=== PATIENT | male | born 1995 | race Two or more races ===

== ENCOUNTER 2018-05-24 14:57 | Emergency (ER) | payer OTHER ==
[~2018-05-24] VITALS: Ht 180.3 cm; Wt 74.0 kg
[2018-05-24 15:36] VITALS: BP 124/59
== END 2018-05-24 17:40 | disposition home or self-care (01) ==
LOC: ER 14:57
DX: H02.89 Other specified disorders of eyelid (principal); R25.3 Fasciculation; F12.10 Cannabis abuse, uncomplicated
CPT/HCPCS: 99282